=== PATIENT | female | born 1970 | race African-American/Black ===

== ENCOUNTER 2018-10-20 09:38 | Outpatient (CLI) | payer OTHER ==
[~2018-10-20 09:38] MED LIST: SODIUM BICARBONATE PEDIATRIC ONE
--- NOTE | 2018-10-20 12:34 | Cat Scan Report ---
CT soft tissue neck without contrast CLINICAL HISTORY: Voice resonance disorder. FINDINGS: No previous exams available for comparison. There appears to be slight asymmetry of the luz maria e vocal cords with small focus of air seen anteriorly on the right at. The findings at may be related to averaging and motion artifact. No lesions are seen along the anterior commissure. Otherwise, the laryngeal structures appear fairly symmetric. The epiglottis is appropriate in size. There is no sign ificant narrowing of the airway at. There are scattered cervical lymph nodes which measure less than 1 cm in greatest transverse dimension. These nodes are nonspecific though likely reactive. The submandibular and parotid glands demonstrate symmetric attenuation without calcification. There i s mild nodular prominence of the inferior left lobe of the thyroid gland. However, no definitive foca l lesions are identified at. No significant inflammatory changes are seen involving the soft tissues of the neck. There are mild degenerative disc changes at C5-6 and C6-7. All CT scans at this location are performed using the CT dose reduction for ALARA by means of automated exposure control. IMPRESSION: There is slight asymmetry of the true vocal cords as detailed above which is of unclear significance is; correlation would be needed given the emergent presentation and history of "voice resonance disor linda". Otherwise, the CT neck of the appears unremarkable. Signer Name: Kevin Mai MD Signed: 10/20/2018 12:30 PM Workstation Name: [id number]
== END 2018-10-20 09:39 | disposition home or self-care (01) ==
LOC: CT 09:38
PROVIDERS: ATTEND Otolaryngology
DX: J38.3 Other diseases of vocal cords (principal)
CPT/HCPCS: 70490

== ENCOUNTER 2019-01-26 07:59 | Outpatient (CLI) | payer OTHER ==
--- NOTE | 2019-01-26 09:19 | Ultrasound Report ---
ULTRASOUND THYROID SCAN HISTORY: Unspecified voice resonance disorder TECHNIQUE: Grayscale ultrasound with color Doppler interrogation. FINDINGS: The right lobe measures 5.1 x 1.1 x 1.7 cm. The left lobe measures 6.0 x 1.1 x 1.7 cm. The isthmus me asures 0.3 cm. No evidence for thyroid cyst or mass. Normal echotexture. IMPRESSION: Unremarkable ultrasound of the thyroid gland. Signer Name: Evens Hopkins Jr, MD Signed: 01/26/2019 9:14 AM Workstation Name: [id number]
== END 2019-01-26 08:00 | disposition home or self-care (01) ==
LOC: US 07:59
PROVIDERS: ATTEND Otolaryngology
DX: R49.9 Unspecified voice and resonance disorder (principal)
CPT/HCPCS: 76536